=== PATIENT | female | born 1935 | race Caucasian/White ===

== ENCOUNTER 2017-10-07 09:48 | Day surgery (SDC) | payer MEDICARE, MEDICAID ==
[2017-10-03 12:35] VITALS: BMI 29.8
[~2017-10-07 09:48] MED LIST: Carbachol 0.01% IO ONE; Hyaluronidase Human, Recombi 150 U/ML VIAL ONE; Lidocaine 2% MPF (5 ml) Inj ONE; Tetracaine 0.5% Ophth (OR ONLY) ONE; Tobramycin/Dexamethasone OPHT OINT ONE
[2017-10-07] MEDS ORDERED: Lactated Ringer's 500 ML IV ONE ×2 (10:04→10:33)
[2017-10-07] MEDS ORDERED: Tropicamide 1% Opht SOLUTION OD SCH (10:15)
[2017-10-07] MEDS ORDERED: Ciprofloxacin 0.3% OPTH SOLN OD SCH (10:15)
[2017-10-07] MEDS ORDERED: Cyclopentolate 1% Opth (2 ml) OD SCH (10:15)
[2017-10-07] MEDS ORDERED: Flurbiprofen 0.03% Opht SOLN OD SCH (10:15)
[2017-10-07] MEDS ORDERED: Phenylephrine 2.5% Opht Soln OD SCH (10:15)
[2017-10-07] MEDS ORDERED: Chondroitin/Hyaluronate Opth Syringe KIT (0.55 ml-0.5 ml) IO ONE (11:33)
[2017-10-07] MEDS ORDERED: Propofol 10 mg/ml Inj (20 ML) ONE (11:34)
[2017-10-07 12:31] VITALS: RESP 18; TEMP 98; O2SAT 100
[2017-10-07 13:07] VITALS: BP 114/76; PULSE 71
--- NOTE | 2017-10-10 06:28 | OP ---
PROCEDURE DATE: 10/07/2017 PREOPERATIVE DIAGNOSIS: CATARACT, RIGHT EYE. POSTOPERATIVE DIAGNOSIS: CATARACT, RIGHT EYE. OPERATIVE PROCEDURE: CATARACT EXTRACTION WITH IMPLANT, RIGHT EYE. ANESTHESIA TYPE: Local, standby. COMPLICATIONS: None. PROCEDURE: Local anesthesia was achieved using a mixture of 1% lidocaine and Amphadase. The patient was then prepped and draped in the usual sterile fashion for ophthalmic surgery. Betadine drops were placed into the eye. A lid speculum was used and a sideport incision was made using a 15 degree blade. Viscoelastic was used to fill the anterior chamber and a 2.7 millimeter slit blade was used to create a surgical opening. Additional viscoelastic was placed into the eye and a capsulorrhexis was performed. Hydrodissection and delineation were then carried out. Phacoemulsification of the nucleus was performed with ease and cortical cleanup was achieved without difficulty. The capsular bag was refilled using viscoelastic and a posterior chamber lens was inserted through the existing wound and placed into the capsular bag and easily centered. All viscoelastic was then aspirated from the eye and Miochol was instilled for good symmetric pupillary constriction. The sideport wound was hydrated as necessary and a good watertight closure was observed at the conclusion of the case. A TobraDex soaked collagen shield was then placed over the eye. The lid speculum was removed. TobraDex ointment was placed onto the eye and a patch and shield were placed. The patient tolerated the procedure well. Zay Rivera MD
== END 2017-10-07 13:10 | disposition home or self-care (01) ==
LOC: C.SDS 09:48
PROVIDERS: ATTEND Ophthalmology
DX: E11.36 Type 2 diabetes mellitus with diabetic cataract (principal); Z79.84 Long term (current) use of oral hypoglycemic drugs
CPT/HCPCS: 66984; 82948; J2704; J3470; J7120; V2632